=== PATIENT | female | born 1980 | race Caucasian/White ===

== ENCOUNTER 2016-12-07 04:30 | Inpatient (IN) | payer OTHER ==
[~2016-12-07] VITALS: Ht 154.9 cm; Wt 74.4 kg
[~2016-12-07 04:30] MED LIST: CEPH-512 PO; HYDR-4003 PO; ONDA8TAB7 PO
[2016-12-07] MEDS ORDERED: Carboprost 250 mCg/mL Inj IM PRN ×2 (04:55→13:40)
[2016-12-07] MEDS ORDERED: Sodium Chloride LOK Flush 10 mL Syringe IVFLUSH PRN (04:55)
[2016-12-07] MEDS ORDERED: Oxytocin 30 Units/500 mL LR 30 UNITS in IV Premix 1 EACH IV PRN ×3 (04:55→13:40)
[2016-12-07] MEDS ORDERED: Oxytocin 10 Unit/mL Inj IM PRN ×2 (04:55→13:40)
[2016-12-07] MEDS ORDERED: Hemorrhage Kit, Post Partum XX ONE ×2 (04:55→13:40)
[2016-12-07] MEDS ORDERED: Methylergonovine 0.2 mg/mL Inj IM PRN ×2 (04:55→13:40)
[2016-12-07 05:48] LABS: Mean Corpuscular Hemoglobin 29.9 pg (27.0-35.0); Mean Corpuscular Volume 89.1 fL (81-100)
[2016-12-07] MEDS: fentaNYL-PF 50 mCg/mL 2 mL Inj IVPUSH PRN ×3 (06:05→10:13)
[2016-12-07] MEDS: Lactated Ringer's 1,000 ML IV PRN ×2 (06:52→09:48)
[2016-12-07] MEDS ORDERED: Lactated Ringer's 1,000 ML IV SCH ×2 (09:53→13:37)
--- NOTE | 2016-12-07 10:39 | PROG NOTE ---
[address] [address] PROGRESS NOTE PATIENT: VIANNEY ROSENBERG : 1980 MR#: [id number] ADMIT: 12/07/2016 JOB ID: [id number] DATE: 12/07/2016 [facility] NOTE: The patient was admitted earlier this morning with spontaneous rupture of membranes (high leak), clear fluid, and early labor, gradually progressing and contraction intensity. A short time ago, I ruptured membranes of forebag and clear fluid was noted, and cervix found to be at 3-4 cm dilatation, 90% effaced, head at -2 station. heart tracing has been acceptable. Contraction pattern has been somewhat irregular, sometimes with stronger contractions, sometimes with a lesser one, and she has received fentanyl for pain management yet is hoping for an epidural soon. Note that anesthesiologist is heading back to for another patient, and we will give the patient another dose of fentanyl while also providing Pitocin to bring contractions closer and more symmetrically intense as we work towards the active phase of labor. Anticipate shorter second stage of labor than last time, and anticipate routine vaginal delivery. The anesthesiologist will come into room once finished with case that he is soon to be involved with.
--- NOTE | 2016-12-07 10:54 | HP ---
[address] [address] HISTORY AND PHYSICAL PATIENT: VIANNEY ROSENBERG : 1980 MR#: [id number] ADMIT: 12/07/2016 JOB ID: [id number] CORRECTED REPORT: DATE: 12/07/2016 [facility] NOTE: The patient is a 36-year-old G 3, P 2, AB 0 single woman followed prenatally at [facility], see record for details. Due date is December 17, 2016, placing the patient at 38 and 4/7 weeks along on admission. She has negative strep test, she is Rh positive, she has rubella immune status, she has advanced maternal age with negative quad screen and negative level 2 sonogram. She is treated for hypothyroidism with replacement therapy, and she has had some significant stress during the related to a custody mierles. Note that patient did not have a flu shot during yet did do Tdap on November 08, 2016. The patient began josefina on December 06, 2016, and then believes that she started leaking some amniotic fluid around 0200 on the day of admission, i.e., on December 07, 2016. She developed stronger contractions and presented to the [facility] and was found to be 1.5-2 cm dilated and 60% effaced, reportedly. She was thus admitted at 38.5 weeks along with ruptured membranes and early labor, anticipating of third child. PHYSICAL EXAMINATION: On admission, height is 61 3/8 inches. Last weight and blood pressure in the office 165 pounds and 114/60 respectively. Neck: No thyromegaly. Lungs: Clear to auscultation and percussion. Heart: Regular in rate and rhythm. Abdomen: Fundal height at last check 37 cm, positive heartbeat. Vertex presentation. Pelvic examination on admission, reportedly 1.5-2 cm, 60% effaced, vertex. Bag of water (forebag) noted in ROM Plus positive. DIAGNOSTIC DATA: White blood cell count 8.5 on admission, hemoglobin 12.1, platelets 257. IMPRESSION: 1. A 38 and 4/7 weeks . 2. Latent phase labor. 3. Spontaneous rupture of membranes, suspect high leak. 4. Negative GBS status. 5. Rubella immune. 6. Rh positive. 7. Up to date with Tdap vaccination. 8. Advanced maternal age, note negative quad screen and negative level two sonogram. 9. Hypothyroidism, using replacement therapy. 10. Asthma, controlled with QVAR and albuterol inhaler p.r.n. 11. Significant stress during at times, related to stress with ex- over a custody mireles. 12. High-risk HPV positive on test early in although Pap negative, planning repeat both at one year after. 13. Reproductive history: a. First --39 and 2/7 weeks , vacuum extraction delivery of 7 pound 2 ounce baby, epidural. Pushed 4-1/2 hours. b. Second --41 week spontaneous vaginal delivery, 8 pounds 4 ounce baby, induced, pushed for perhaps 3 hours per her report. Broken tailbone per her report c. Third --current. 14. No known drug allergies. 15. Family history of hypertension (parents), uterine/cervical cancer (mother reportedly), extra digit (mother of baby), and confusing gender situation (paternal aunt reportedly had a boy although female genitalia, specific condition ?). PLAN: The patient has been admitted to [facility] on December 07, 2016, with rupture of membranes and early labor at 38.5 weeks along, anticipating vaginal delivery. The patient is planning on having epidural for anesthesia. Corrected by GIANCARLO 12/08/16 at 8:47am Report type.
[2016-12-07] MEDS ORDERED: LANOlin HPA 7 Gm Ointment TOPICAL PRN (13:40)
[2016-12-07] MEDS ORDERED: Witch Hazel-Glycerin Pads TOPICAL PRN (13:40)
[2016-12-07] MEDS ORDERED: Benzocaine (Dermoplast) 20% 60 Gm Spray TOPICAL PRN (13:40)
[2016-12-07] MEDS ORDERED: Influenza (Adult) Vaccine 0.5 mL Syringe IM ONE (13:40)
[2016-12-07] MEDS ORDERED: Measles-Mumps-Rubella Vaccine 0.5 mL Inj SUBQ ONE (13:40)
[2016-12-07] MEDS ORDERED: TdaP Vaccine 0.5 mL Inj IM ONE (13:40)
[2016-12-07] MEDS ORDERED: Albuterol 2.5 mg/3 mL Inhalation Solution NEB PRN (13:40)
[2016-12-07] MEDS: HYDROcodone-APAP 5-325 mg Tablet PO PRN ×2 (14:39→18:52)
--- NOTE | 2016-12-07 19:36 | PCM.DIOB ---
Obstetrical Disch Instruction Dates of Hospitalization Date of Hospital Admission December 07, 2016 at 04:35 Providers Admitting Physician: Tarik Lee MD Primary Care Physician: Arleen Parker MD Attending Physician: Tarik Lee MD Discharge Diagnosis Problems: (1) Status: Acute ICD Code: Z33.1 Diet Discharge Diet: No restrictions Activity Discharge Activity-General: Pelvic Rest for 6 weeks Dressing and Incisional Care Hygiene: November shower, Perineal care, Sitz bath, Dermoplast spray, Witch Isi pads, Ice Follow Up Plan Follow-up appointment: Weeks (Follow up in 6 weeks for checkup.) Call your provider for: Fever or Chills, Shortness of breath, Heavy vaginal bleeding, Red painful breasts Tarik Lee MD December 07, 2016 19:36
[2016-12-07] MEDS ORDERED: DOCU-41 PO (19:43)
[2016-12-07] MEDS ORDERED: IBUP-1827 PO (19:43)
[2016-12-07] MEDS ORDERED: HYDR-4003 PO (19:43)
--- NOTE | 2016-12-07 20:13 | PROG NOTE ---
[address] [address] PROGRESS NOTE PATIENT: VIANNEY ROSENBERG : 1980 MR#: [id number] ADMIT: 12/07/2016 JOB ID: [id number] DATE: 12/07/2016 TIME: 1200 [facility] NOTE: The patient was admitted early this morning in labor with ruptured membranes. Ultimately, Pitocin augmentation was provided, artificial rupture of forebag was accomplished, and intravenous fentanyl was provided (multiple doses) for pain management. Epidural could not be provided as the anesthesiologist was tied up with section. heart tracing was acceptable throughout, patient remained afebrile, and the patient did extremely well throughout labor. Labor progressed and was rather quick through the active phase, particularly after contractions intensified following rupture of the forebag. Once completely dilated, the patient felt a great deal of pressure and she learned to push extremely well. She brought the head down to position and the head delivered, followed directly by the shoulders, body and extremities. There was umbilical cord around the neck and body and loosely around an extremity. Baby was active and crying and vigorous upon delivery, responding well to stimulation and drying. After 1 minute of delay, umbilical cord was clamped and cut, and cord blood was obtained for routine studies. Placenta with membranes was then spontaneously expelled, intact. Uterus contracted well with massage plus intravenous Pitocin infusion, and blood loss was in the 150 cc range. Blood loss was minimal by completion of the repair work. Betadine solution was used to cleanse the vulvovaginal region. The only laceration was that of midline second-degree perineal laceration. Lidocaine solution was 1st injected for anesthetic purposes followed by closure with 3-0 chromic suture in deep and then more superficial (running subcuticular) layers. Hemostasis was noted to be complete, there was no hematoma formation, and skin edges were well approximated and perineal body before it should be good. There were no rectal lacerations or stitches. This marked the close of the procedure. Instrument, needle and sponge counts were all found to be correct. It certainly is anticipated that mother and baby will do well during the timeframe.
[2016-12-07 20:30] VITALS: BP 116/58; PULSE 73; RESP 16
--- NOTE | 2016-12-07 20:52 | NUR ---
Discharge pt discharged around 2044, IV d/c'd and assessments by AM RN, pt understands discharge instructions. scripts signed by dr. louise and given to pt. vss. [facility] and they will be following transport by car per [facility].
--- NOTE | 2016-12-07 22:46 | DIS ---
[address] [address] DISCHARGE SUMMARY PATIENT: VIANNEY ROSENBERG : 1980 MR#: [id number] ADMIT: 12/07/2016 JOB ID: [id number] DIS: 12/07/2016 DISCHARGE DIAGNOSIS: Term , delivered. PROCEDURES PERFORMED DURING HOSPITALIZATION: 1. Vaginal delivery. 2. Perineal laceration repair. HOSPITAL COURSE: The patient was admitted to [facility] in labor at 38 and a half weeks along. She ultimately went on to deliver vaginally. During the timeframe, the patient did well, with stable vitals, afebrile, with reasonable bleeding and pain management, ambulating and voiding, and handling baby well. She had no leg pain or shortness of breath. Note, however, that the baby developed some oxygen requirement, also was found to have a rather elevated white blood cell count, suggestive of potential myeloproliferative disorder, and mirror framer has felt that baby potentially has trisomy 21. [employer] [facility] is sending [facility] and the patient and will go down as well. The patient is thus being discharged later on the day of delivery, in stable condition. DISCHARGE PROGRAM: Patient will call p.r.n., and to report condition of baby as testing is undertaken and clinical management continues, and also to make appointment for six weeks at [facility]. She will observe pelvic rest for six weeks. DISCHARGE MEDICATIONS: Include Vicodin, ibuprofen, and Colace, prescriptions written. She will also use vitamin daily while doing any nursing or pumping.
== END 2016-12-07 21:40 | disposition home or self-care (01) | DRG 560 ==
LOC: FBCO 04:30 → FBC 04:35
PROVIDERS: ADMIT Obstetrics & Gynecology; ATTEND Obstetrics & Gynecology
PROC: 10E0XZZ Delivery of Products of Conception, External Approach (ICD-10-PCS; principal; 2016-12-07)
PROC: 0KQM0ZZ Repair Perineum Muscle, Open Approach (ICD-10-PCS; 2016-12-07)
DX: O69.81X0 Labor and delivery complicated by cord around neck, without compression, not applicable or unspecified (principal); E03.9 Hypothyroidism, unspecified; O70.1 Second degree perineal laceration during delivery; O99.284 Endocrine, nutritional and metabolic diseases complicating childbirth; Z3A.38 38 weeks gestation of pregnancy; Z37.0 Single live birth